=== PATIENT | male | born 1990 | race African-American/Black ===

== ENCOUNTER 2020-01-06 00:34 | Outpatient (NON) | payer BC, SELFPAY ==
[2020-01-06 17:47] LABS: SARS-CoV-2 RNA PCR Negative
== END 2020-01-06 00:35 ==
PROVIDERS: PCP Internal Medicine; Visit Provider Internal Medicine
DX: Z20.828 Contact with and (suspected) exposure to other viral communicable diseases (principal)
CPT/HCPCS: 87635; C9803; U0003